=== PATIENT | female | born 2000 | race African-American/Black ===

== ENCOUNTER 2018-08-09 10:45 | Emergency (ER) | payer OTHER ==
[~2018-08-09] VITALS: Ht 170.2 cm; Wt 59.0 kg
[2018-08-09 10:46] VITALS: BP 115/74
[2018-08-09] MEDS ORDERED: POLYMYXIN B/TMP10 ML OPHTHALMIC (11:07)
== END 2018-08-09 11:33 | disposition home or self-care (01) ==
LOC: ER 10:45
DX: J30.9 Allergic rhinitis, unspecified (principal); H10.33 Unspecified acute conjunctivitis, bilateral

== ENCOUNTER 2019-02-12 19:39 | Emergency (ER) | payer OTHER ==
[~2019-02-12] VITALS: Ht 170.2 cm; Wt 90.7 kg
[~2019-02-12 19:39] MED LIST: POLYMYXIN B/TMP10 ML OPHTHALMIC
[2019-02-12] MEDS ORDERED: NOHOMEMEDICATIONS (20:27)
[2019-02-12 20:47] LABS: URINE BILIRUBIN NEGATIVE (Negative); URINE BLOOD NEGATIVE (Negative); URINE CLARITY CLEAR; URINE COLOR YELLOW; URINE GLUCOSE-RANDOM* NEGATIVE (Negative); URINE KETONES NEGATIVE (Negative); URINE LEUKOCYTES-REFLEX TRACE (Negative); URINE NITRITE-REFLEX NEGATIVE (Negative); URINE PROTEIN (DIPSTICK) NEGATIVE (Negative); URINE SPECIFIC GRAVITY 1.025 (1.005-1.035); URINE UROBILINOGEN 0.2 E.U./dl (0.2-1.0)
[2019-02-12] MEDS ORDERED: ZOFRAN ODT4 MG PO (21:10)
[2019-02-12 21:18] VITALS: BP 123/76
== END 2019-02-12 21:18 | disposition home or self-care (01) ==
LOC: ER 19:39
PROVIDERS: Emergency Medicine
DX: R11.2 Nausea with vomiting, unspecified (principal)

== ENCOUNTER 2019-08-11 13:59 | Emergency (ER) | payer OTHER ==
[~2019-08-11] VITALS: Ht 170.2 cm; Wt 97.1 kg
[~2019-08-11 13:59] MED LIST changes: +NOHOMEMEDICATIONS; +ZOFRAN ODT4 MG PO
[2019-08-11] MEDS ORDERED: PROAIR HFA8.5 GM INH ×2 (14:03→14:34)
[2019-08-11] MEDS ORDERED: ALBUTEROL2.5 MG/31 INH (14:34)
[2019-08-11] MEDS ORDERED: PREDNISONE50 MG PO (14:42)
[2019-08-11 15:11] VITALS: BP 121/84
--- NOTE | 2019-08-12 08:33 | EKG ---
[facility] [place] [address] ELECTROCARDIOGRAM REPORT Name: PEDRO MONTILLA Room #: DEP [facility]#: [id number] Admission: 08/11/19 Attend Phys: Discharge: 08/11/19 Date of : [birth year] Report #: [id number] THIS REPORT FOR: cc: JOANNE - [place] family physician/PCP JOANNE - [place] family physician/PCP Tico Mann MD [facility] THIS REPORT FOR: //name// [facility] ED Test Date: 2019-08-11 Test Time: 14:52:38 Pat Name: PEDRO MONTILLA Department: Room: Gender: F Hand [employer]er: : 2000 Requested By: Michael Torres Order Number: [id number] MD: Tico Mann Measurements Intervals [place] Rate: 74 P: 35 FL: 203 QRS: 39 QRSD: 79 T: 13 QT: 379 QTc: 421 Interpretive Statements Sinus rhythm Borderline prolonged [place] interval No previous ECG available for comparison Electronically Signed On 08-12-2019 8:31:36 CDT by Tico Mann [email or web address] <ELECTRONICALLY SIGNED> By: Tico Mann MD, [facility] 08/12/19 0831 51 51 Tico Mann MD, FAC /EPI
== END 2019-08-11 15:11 | disposition home or self-care (01) ==
LOC: ER 13:59
DX: J45.901 Unspecified asthma with (acute) exacerbation (principal); Z03.818 Encounter for observation for suspected exposure to other biological agents ruled out

== ENCOUNTER 2020-02-17 17:46 | Emergency (ER) | payer OTHER ==
[~2020-02-17] VITALS: Ht 172.7 cm; Wt 81.7 kg
[~2020-02-17 17:46] MED LIST changes: +ALBUTEROL2.5 MG/31 INH; +PREDNISONE50 MG PO; +PROAIR HFA8.5 GM INH
[2020-02-17 17:55] VITALS: BP 110/71
[2020-02-17] MEDS ORDERED: AUGMENTIN 875-1 EACH PO (18:34)
== END 2020-02-17 18:40 | disposition home or self-care (01) ==
LOC: ER 17:46
DX: K11.5 Sialolithiasis (principal); J45.909 Unspecified asthma, uncomplicated; Z79.899 Other long term (current) drug therapy

== ENCOUNTER 2020-03-02 14:17 | Emergency (ER) | payer OTHER ==
[~2020-03-02] VITALS: Ht 170.2 cm; Wt 90.7 kg
[~2020-03-02 14:17] MED LIST changes: +AUGMENTIN 875-1 EACH PO
[2020-03-02 14:52] LABS: URINE BILIRUBIN NEGATIVE (Negative); URINE BLOOD NEGATIVE (Negative); URINE CLARITY SL CLOUDY; URINE COLOR YELLOW; URINE GLUCOSE-RANDOM* NEGATIVE (Negative); URINE KETONES NEGATIVE (Negative); URINE LEUKOCYTES-REFLEX 1+ (Negative); URINE NITRITE-REFLEX NEGATIVE (Negative); URINE PROTEIN (DIPSTICK) TRACE (Negative); URINE SPECIFIC GRAVITY >= 1.030 (1.005-1.035); URINE UROBILINOGEN 0.2 E.U./dl (0.2-1.0)
[2020-03-02 15:03] LABS: CASTS None Seen /LPF (None Seen); CRYSTALS None Seen /LPF (None Seen); SQUAMOUS 4-10 Moderate /LPF (0-3)
[2020-03-02 15:04] LABS: BACTERIA-REFLEX 1-9 Few /HPF (None Seen); URINE RBC None Seen /HPF (0-2); URINE WBC-REFLEX 6-15 Few /HPF (0-5)
[2020-03-02] MEDS ORDERED: KEFLEX500 M1 PO (15:17)
[2020-03-02 15:49] VITALS: BP 110/70
== END 2020-03-02 15:50 | disposition home or self-care (01) ==
LOC: ER 14:17
PROVIDERS: Nurse Practitioner
DX: N39.0 Urinary tract infection, site not specified (principal); Z20.2 Contact with and (suspected) exposure to infections with a predominantly sexual mode of transmission; J45.909 Unspecified asthma, uncomplicated; Z79.899 Other long term (current) drug therapy

== ENCOUNTER 2020-09-01 19:41 | Emergency (ER) | payer OTHER ==
[~2020-09-01] VITALS: Ht 170.2 cm; Wt 93.0 kg
[~2020-09-01 19:41] MED LIST changes: +KEFLEX500 M1 PO
[2020-09-01 19:53] VITALS: BP 110/69
[2020-09-01] MEDS ORDERED: MOMETASONE FURO45 G1 TOP (20:19)
== END 2020-09-01 20:35 | disposition home or self-care (01) ==
LOC: ER 19:41
DX: L30.9 Dermatitis, unspecified (principal); J45.909 Unspecified asthma, uncomplicated